=== PATIENT | male | born 1950 | race Caucasian/White ===

== ENCOUNTER 2017-05-18 05:41 | Emergency (ER) | payer OTHER ==
[2017-05-18 06:12] LABS: BASOPHILS % 1.4 (0.0-1.5); EOSINOPHILS % 0.8 % (0.0-6.8); MEAN CORPUSCULAR HEMOGLOBIN 34.2 pg (28.0-34.0); MONOCYTES % 5.9 % (0.0-11.0); NEUTROPHILS # 11.8 # k/uL (1.4-7.7)
[2017-05-18] MEDS ORDERED: IPRATROPIUM/ALBUTEROL SULFATE 3 ML AMPUL.NEB NEB ONE ×2 (06:24→06:27)
[2017-05-18 06:26] LABS: eGFR (African) > 60; eGFR (Non-African) > 60
--- NOTE | 2017-05-18 06:29 | Diagnostic Imaging Report ---
TRUONG DARLING (ROULA) - ER [facility] [address] [facility].[address] [id number] Report Submission Date: May 18, 2017 6:29:26 AM CDT Patient Study Name: MICHEL WILSON Date: May 18, 2017 6:08:25 AM CDT Modality Type: CR Gender: M Description: CHEST : 50 Institution: [facility] Physician: TRUONG DARLING (ROULA) - ER HISTORY: 66-year-old male with shortness of breath. COMPARISON: None available. TECHNIQUE: Single portable AP view of the chest was performed. FINDINGS: No pneumothorax, consolidative infiltrates, or pulmonary edema. The heart is not enlarged. IMPRESSION: Unremarkable portable chest. Electronically signed on May 18, 2017 6:29:26 AM CDT by: James FELICIANO
--- NOTE | 2017-05-18 06:52 | ED Physician Documentation ---
Dyspnea - HISTORIAN Historian: patient - HPI Stated Complaint: SOA/spots before eyes Chief Complaint: Dyspnea Duration: continues in ED, worse Severity: severe Associated Symptoms: chest discomfort, productive cough Further Comments: yes (66 year old female patient drove himself to ER, presents with complaint of dyspnea and see spots. Patient very poor historian, RR 30, RA Sat 96%. States symptoms started on Saturday.) - PAST HX Lung Disease: denies: none Cardiac Disease: other (HTN) PE Risk Factors: hypertension Other History: CVA, other (bipolar, HTN, GERD) - SOCIAL HX Smoking History: cigarettes - FAMILY HX Family History: denies: none - VITAL SIGNS Vital Signs: Vital Signs Temp Pulse Resp BP Pulse Ox 111 H 111/80 95 05/18/17 06:30 09/20/15 12:13 05/18/17 06:30 - REVIEWED ASSESSMENTS Nursing Assessment Reviewed: Yes Vitals Reviewed: Yes <TRUONG DARLING - Last Filed: 05/18/17 07:06> - HPI Further Comments: yes (66 year old male patient drove himself to ER, presents with complaint of dyspnea and see spots. Patient very poor historian, RR 30, RA Sat 96%. States symptoms started on Saturday.) - ROS CONST: weakness EYES/ENT: none GI/: nausea MS/SKIN/LYMPH: none - PAST HX Cardiac Disease: other PE Risk Factors: other (HTN, HLD, reflux esophagitis, chronic shoulder and low back pain, seizures, ? bipolar d/o.) - VITAL SIGNS Vital Signs: Vital Signs Temp Pulse Resp BP Pulse Ox 111 H 111/80 95 05/18/17 06:30 09/20/15 12:13 05/18/17 06:30 <Chris Moscoso - Last Filed: 05/18/17 08:52> - PAST HX Allergies/Adverse Reactions: Allergies Allergy/AdvReac Type Severity Reaction Status Date / Time No Known Allergies Allergy Verified 05/18/17 06:17 Home Medications: Ambulatory Orders Medication Instructions Recorded Aripiprazole [Abilify] 15 mg PO HS 09/20/15 Bupropion HCl [Bupropion HCl] 100 mg PO QDAY 09/20/15 Bupropion HCl [Bupropion HCl] 200 mg PO AM 09/20/15 LORazepam [Ativan] 1 mg PO QID 09/20/15 Melatonin 4 mg PO HS 09/20/15 Tramadol HCl [Ultram] 100 mg PO 1800 09/20/15 Trazodone HCl [Desyrel] 100 mg PO HS 09/20/15 Triamterene/Hydrochlorothiazid 1 tab PO D 09/20/15 [Triamterene-Hctz 75-50 mg Tab] Zolpidem Tartrate [Ambien] 10 mg PO HS 09/20/15 Progress - Progress Progress: [address] Moscoso, lab pending. - EKG/XRAY/CT EKG: rhythm (ST with artifact) - Additional EKG/XRAY/Consults EKG #2: rhythm (St with frequent PAC, ST depression II, III, AvF; V4-V6) <TRUONG DARLING - Last Filed: 05/18/17 07:06> - Progress Progress: ER meds NS 500 cc IVF Duoneb HFN x 1 Albterol HFN x 1 Solu-medrol 80 mg IV Zofran 4 mg iv ASA 325 mg po KCl 40 mEq po Lasix 40 mg po Pt is a 66 yo male with 30 pack-year smoking hx, no formal dx COPD, no heart hx , he says. Pt c/o sob, and is wheezy with rhonchi and coarse breath sounds. Pt has had some chest pain, mild nausea, and some diaphoresis, though his main concern is his sob. Pt is tachycardic with HR 130 to 140. D-dimer is wnl. CXR is wnl. CK is elevated at 611 with CK-MB = 14.2. Troponin is 0.08. EKG shows possible ST depressions in lateral leads. Chest pain resolved in course of ER visit, without tx specific for pain. Wbc=13.8. Transfer to . [facility]. Dr. Barry. - EKG/XRAY/CT XRAY: chest (Unremarkable portable chest.) <Chris Moscoso - Last Filed: 05/18/17 08:52> ED Results Lab/Radiology - Lab Results Lab Results: Lab Results 05/18/17 05/18/17 06:00 06:00 WBC 13.80 K/ul H K/ul (4.00-12.00) RBC 5.37 M/ul H M/ul (3.90-5.20) Hgb 18.4 g/dL H g/dL (12.0-18.0) Hct 49.9 % % (37.0-53.0) MCV 93.0 fl fl (80.0-100.0) MCH 34.2 pg H pg (28.0-34.0) MCHC 36.8 g/dL H g/dL (30.0-36.0) RDW 13.6 % % (11.3-14.3) Plt Count 271 K/mm3 K/mm3 (130-400) Neut % (Auto) 84.9 % H % (39.0-79.0) Lymph % (Auto) 5.9 % L % (16.0-50.0) [place] % (Auto) 5.9 % % (0.0-11.0) Eos % (Auto) 0.8 % % (0.0-6.8) Baso % (Auto) 1.4 (0.0-1.5) Neut # (Auto) 11.8 # k/uL H # k/uL (1.4-7.7) Lymph # (Auto) 0.8 # k/uL # k/uL (0.6-4.0) [place] # (Auto) 0.8 # k/uL # k/uL (0.0-0.9) Eos # (Auto) 0.1 # k/uL # k/uL (0.0-0.6) Baso # (Auto) 0.2 # k/uL # k/uL (0.0-0.5) Reactive Lymphs % 1.2 % % (0.0-5.0) Reactive Lymphs # 0.2 # k/uL # k/uL (0.0-0.8) Sodium 139 mmol/L mmol/L (136-145) Potassium 3.0 mmol/L L mmol/L (3.5-5.0) Chloride 99 mmol/L mmol/L (98-110) Carbon Dioxide 28 mmol/L mmol/L (20-32) BUN 26 mg/dL mg/dL (10-26) Creatinine 1.0 mg/dL mg/dL (0.4-1.5) Estimated Creat Clear 60 Est GFR ( Amer) > 60 (60 - ) Est GFR (Non-Af Amer) > 60 (60 - ) Glucose 132 mg/dL H mg/dL (70-99) Calcium 10.4 mg/dL mg/dL (8.5-10.5) Total Bilirubin 0.8 mg/dL mg/dL (0.2-1.2) AST 35 U/L U/L (0-41) ALT 24 U/L U/L (0-45) Alkaline Phosphatase 93 U/L U/L (46-116) Creatine Kinase 611 U/L H U/L (0-225) Total Protein 8.0 g/dL g/dL (6.0-8.5) Albumin 4.9 g/dL g/dL (3.0-5.5) - Radiology Radiology Impressions: HISTORY: 66-year-old male with shortness of breath. COMPARISON: None available. TECHNIQUE: Single portable AP view of the chest was performed. FINDINGS: No pneumothorax, consolidative infiltrates, or pulmonary edema. The heart is not enlarged. IMPRESSION: Unremarkable portable chest. Electronically signed on May 18, 2017 6:29:26 AM CDT by: James Roldan - Orders Orders: ED Orders Category Date Time Status Continuous EKG monitoring Q1H Care 05/18/17 06:31 Active Continuous Pulse Oximetry Q1H Care 05/18/17 06:[address] IV Lock 1T Care 05/18/17 06:05 Active CHEST 1 VIEW [RAD] Stat Exams 05/18/17 Completed CBC/PLATELET/DIFF Stat Lab 05/18/17 06:00 Completed CMP Stat Lab 05/18/17 06:00 Completed CREATINE KINASE Stat Lab 05/18/17 06:00 Completed TROPONIN I (cTnI) Stat Lab 05/18/17 Ordered TROPONIN I (cTnI) Stat Lab 05/18/17 06:47 Ordered Chem Sticks Med 05/18/17 07:00 Ordered 1 each CHEMQID Ipratropium/Albuterol Sulfate [Duoneb] Med 05/18/17 06:24 Discontinued 3 ml NEB .STK-MED ONE Ipratropium/Albuterol Sulfate [Duoneb] Med 05/18/17 06:27 Discontinued 3 ml NEB NOW ONE Oxygen Daily Oxygen 05/18/17 06:00 Ordered EKG WITH COMPARISON Stat Ther 05/18/17 06:03 Ordered EKG WITH COMPARISON Stat Ther 05/18/17 06:48 Ordered <TRUONG DARLING - Last Filed: 05/18/17 07:06> - Lab Results Lab Results: Lab Results 05/18/17 05/18/17 05/18/17 06:47 06:00 06:00 WBC 13.80 K/ul H K/ul (4.00-12.00) RBC 5.37 M/ul H M/ul (3.90-5.20) Hgb 18.4 g/dL H g/dL (12.0-18.0) Hct 49.9 % % (37.0-53.0) MCV 93.0 fl fl (80.0-100.0) MCH 34.2 pg H pg (28.0-34.0) MCHC 36.8 g/dL H g/dL (30.0-36.0) RDW 13.6 % % (11.3-14.3) Plt Count 271 K/mm3 K/mm3 (130-400) Neut % (Auto) 84.9 % H % (39.0-79.0) Lymph % (Auto) 5.9 % L % (16.0-50.0) [place] % (Auto) 5.9 % % (0.0-11.0) Eos % (Auto) 0.8 % % (0.0-6.8) Baso % (Auto) 1.4 (0.0-1.5) Neut # (Auto) 11.8 # k/uL H # k/uL (1.4-7.7) Lymph # (Auto) 0.8 # k/uL # k/uL (0.6-4.0) [place] # (Auto) 0.8 # k/uL # k/uL (0.0-0.9) Eos # (Auto) 0.1 # k/uL # k/uL (0.0-0.6) Baso # (Auto) 0.2 # k/uL # k/uL (0.0-0.5) Reactive Lymphs % 1.2 % % (0.0-5.0) Reactive Lymphs # 0.2 # k/uL # k/uL (0.0-0.8) Sodium 139 mmol/L mmol/L (136-145) Potassium 3.0 mmol/L L mmol/L (3.5-5.0) Chloride 99 mmol/L mmol/L (98-110) Carbon Dioxide 28 mmol/L mmol/L (20-32) BUN 26 mg/dL mg/dL (10-26) Creatinine 1.0 mg/dL mg/dL (0.4-1.5) Estimated Creat Clear 60 Est GFR ( Amer) > 60 (60 - ) Est GFR (Non-Af Amer) > 60 (60 - ) Glucose 132 mg/dL H mg/dL (70-99) Calcium 10.4 mg/dL mg/dL (8.5-10.5) Total Bilirubin 0.8 mg/dL mg/dL (0.2-1.2) AST 35 U/L U/L (0-41) ALT 24 U/L U/L (0-45) Alkaline Phosphatase 93 U/L U/L (46-116) Creatine Kinase 611 U/L H U/L (0-225) Troponin I 0.08 ng/mL H ng/mL (0.03-0.06) Total Protein 8.0 g/dL g/dL (6.0-8.5) Albumin 4.9 g/dL g/dL (3.0-5.5) - Orders Orders: ED Orders Category Date Time Status Continuous EKG monitoring Q1H Care 05/18/17 06:31 Active Continuous Pulse Oximetry Q1H Care 05/18/17 06:[address] IV Lock 1T Care 05/18/17 06:05 Active CHEST 1 VIEW [RAD] Stat Exams 05/18/17 Completed BNP [NT-proBNP] Stat Lab 05/18/17 06:00 Received CBC/PLATELET/DIFF Stat Lab 05/18/17 06:00 Completed CMP Stat Lab 05/18/17 06:00 Completed CREATINE KINASE Stat Lab 05/18/17 06:00 Completed TROPONIN I (cTnI) Stat Lab 05/18/17 06:47 Completed UA W/MICRO IF INDICATED Stat Lab 05/18/17 06:52 Ordered Chem Sticks Med 05/18/17 07:00 Ordered 1 each CHEMQID Ipratropium/Albuterol Sulfate [Duoneb] Med 05/18/17 06:24 Discontinued 3 ml NEB .STK-MED ONE Ipratropium/Albuterol Sulfate [Duoneb] Med 05/18/17 06:27 Discontinued 3 ml NEB NOW ONE Oxygen Daily Oxygen 05/18/17 06:00 Ordered EKG WITH COMPARISON Stat Ther 05/18/17 06:03 Ordered EKG WITH COMPARISON Stat Ther 05/18/17 06:48 Ordered <Chris Moscoso - Last Filed: 05/18/17 08:52> Dyspnea Physical Exam - EXAM General Appearance: moderate distress EENT: eye inspection normal, JUANA Respiratory: no pain on inspiration, accessory muscle use, decreased air movement, rales (bilaterally) CVS: pulses equal, occasional extrasystoles (frequent PACs), tachycardia Abdomen: non-tender, no organomegaly, no distention, no ascites Skin: color nml, no rash, warm, nml palp., dry Extremities: non-tender, normal range of motion, no evidence of injury, no edema , J, THIRD HAND Neuro/Psych: oriented x3, motor nml, sensation nml, mood/affect nml <TRUONG DARLING - Last Filed: 05/18/17 07:06> - EXAM Neck: nml inspection <Chris Moscoso - Last Filed: 05/18/17 08:52> Discharge <TRUONG DARLING - Last Filed: 05/18/17 07:06> Decision to Admit: NO Decision Time: 08:51 <Chris Moscoso - Last Filed: 05/18/17 08:52> Clincal Impression: chest pain, sob Referrals: Elizabeth Jeffries FNP [Primary Care Provider] - Condition: Fair Disposition: [facility]FER [facility]
[2017-05-18] MEDS ORDERED: ALBUTEROL SULFATE 2.5 MG/3 ML AMPUL.NEB NEB ONE (07:21)
[2017-05-18] MEDS ORDERED: POTASSIUM CHLORIDE 20 MEQ TABLET.ER PO ONE (07:28)
[2017-05-18] MEDS ORDERED: ALBUTEROL SULFATE 2.5 MG/0.5 ML AMPUL.NEB NEB ONE (07:29)
[2017-05-18] MEDS ORDERED: ONDANSETRON HCL/PF 4 MG/ 2ML VIAL IVP ONE (07:37)
[2017-05-18] MEDS ORDERED: ASPIRIN 325 MG TABLET PO ONE (07:38)
[2017-05-18] MEDS ORDERED: 0.9 % SODIUM CHLORIDE 500 ML IV ONE (07:50)
[2017-05-18] MEDS ORDERED: methylPREDNISolone SOD SUCC 40 MG/ML VIAL IM ONE (07:55)
[2017-05-18] MEDS ORDERED: methylPREDNISolone SOD SUCC 40 MG/ML VIAL ONE (07:56)
[2017-05-18] MEDS ORDERED: FUROSEMIDE 40 MG/4 ML VIAL IVP ONE (08:38)
[2017-05-18] MEDS ORDERED: FUROSEMIDE 40 MG/4 ML VIAL ONE (08:38)
[2017-05-18 11:12] VITALS: BP 138/98
== END 2017-05-18 10:00 | disposition short-term general hospital (02) ==
LOC: ED 05:41
DX: R07.9 Chest pain, unspecified (principal); R06.02 Shortness of breath
CPT/HCPCS: 71010; 80053; 82550; 82553; 83880; 84484; 85025; 85379; 85610; 85730; A9270; J1940; J2405; J2920; J7060; 96361; 96374; 99284; J1030; S1016